=== PATIENT | male | born 1975 | race Caucasian/White ===

== ENCOUNTER 2019-11-04 08:36 | Emergency (ER) | payer OTHER ==
[~2019-11-04] VITALS: Ht 188 cm; Wt 75.0 kg
[2019-11-04 08:58] VITALS: Ht 188 cm; Wt 75.0 kg
[2019-11-04 09:08] LABS: BASOPHILS 0.5 % (0-2); EOSINOPHILS 12.7 % (0-7); HEMATOCRIT 45.4 % (42.0-54.0); HEMOGLOBIN 15.1 g/dL (13.5-17.5); LYMPHOCYTES 48.1 % (15-50); MCH 28.8 pg (26.0-34.0); MCHC 33.3 g/dL (31.0-37.0); MCV 86.5 fL (80.0-100.0); MEAN PLATELET VOLUME 8.4 fL (7.4-10.4); MONOCYTES 12.5 % (2-11); NEUTROPHILS 26.2 % (40-80); PLATELET COUNT 256 10x3/uL (130-400); RBC 5.25 10x6/uL (4.20-6.10); RDW 12.8 % (11.5-14.5); WBC 5.9 10x3/uL (4.8-10.8)
[2019-11-04 09:10] LABS: CALC OSMOLALITY 278 mosm/kg (275-300); CARBON DIOXIDE 26.6 mmol/L (21.0-32.0); CHLORIDE - SERUM 103 mmol/L (98-107); GLUCOSE 98 mg/dL (74-106); SODIUM 139 mmol/L (136-145); UREA NITROGEN 15 mg/dL (7-18); eGFR NON AFRICAN AMERICAN 85 mL/min (90-120)
[2019-11-04 09:11] LABS: APTT 26.2 SECONDS (22.8-39.4); INR 0.93 (0.85-1.17); PROTIME 12.4 SECONDS (11.6-15.0)
[2019-11-04 09:28] LABS: ALBUMIN 3.9 g/dL (3.4-5.0); ALKALINE PHOSPHATASE 86 U/L (30-120); ALT (SGPT) 44 U/L (10-68); BILIRUBIN - TOTAL 0.37 mg/dL (0.2-1.3); CKMB 1.2 U/L (0.0-3.6); CREATINE KINASE 174 UL (21-232); MAGNESIUM - SERUM 2.1 mg/dL (1.8-2.4); PROTEIN - SERUM 7.7 g/dL (6.4-8.2); THYROID STIMULATING HORMONE 1.28 uIU/mL (0.36-3.74); TROPONIN-I < 0.017 ng/mL (0.000-0.060)
[2019-11-04 12:58] VITALS: BP 152/95
== END 2019-11-04 13:00 | disposition home or self-care (01) ==
LOC: EDBD 08:36 → D.ER 08:36
PROVIDERS: Family Medicine
DX: R07.89 Other chest pain (principal); R20.0 Anesthesia of skin; R20.2 Paresthesia of skin; M79.645 Pain in left finger(s)